=== PATIENT | male | born 2000 | race Caucasian/White ===

== ENCOUNTER 2021-03-08 13:03 | Emergency (ER) | payer OTHER ==
[~2021-03-08] VITALS: Ht 172.7 cm; Wt 68.0 kg
[2021-03-08] MEDS ORDERED: SODIUM CHLORIDE IRR BOTTLE IR ONE (13:24)
[2021-03-08 13:33] VITALS: BP 109/62
--- NOTE | 2021-03-08 13:37 | ER.PDOC ---
General Chief Complaint: Requesting Medical Care Stated Complaint: LEFT FOOT INJURY Time seen by MD: 13:12 Source: patient Exam Limitations: no limitations History of Present Illness Initial Comments 20 year old male presents with puncture wound top left foot. 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 Onset: just prior to arrival Recent Injury: Yes Where: work Severity: mild 1 - puncture Exacerbated By: walking movement Relieved By: rest Prior symptoms/Treatment: No Similar symptoms previous, No Recenly Seen, No Treated by Doctor, No Recently Hospitalized Allergies: Coded Allergies: No Known Allergies (Unverified , 03/08/21) Review of Systems Constitutional: denies no symptoms reported, denies see HPI, denies chills, denies diaphoresis, denies fever, denies malaise, denies weakness, denies other Respiratory: denies no symptoms reported, denies see HPI, denies cough, denies orthopnea, denies shortness of breath, denies stridor, denies wheezing, denies other Cardiovascular: denies no symptoms reported, denies see HPI, denies chest pain, denies edema, denies palpitations, denies syncope, denies other Gastrointestinal: denies no symptoms reported, denies see HPI, denies abdominal pain, denies constipation, denies diarrhea, denies nausea, denies vomiting, denies other Musculoskeletal: denies joint pain, denies joint swelling; muscle pain Skin: denies lesions, denies rash All Other Systems: Reviewed and Negative Physical Exam General Appearance: Alert, No Apparent Distress 1 - L-shaped puncture wound Lower Extremity: no pedal edema, tenderness Joint Exam: joints nml, nml ROM, nml gait/weight bearing Vascular: no vascular compromise, pulses full/equal Neuro/Psych: sensation nml, motor nml, oriented x3, CN's nml as tested, moo d/affect nml Skin: color nml, warm/dry, no rash Back/Neck: nml inspection EENT: eyes inspection nml, ENT inspection nml, pharynx nml Respiratory: no resp distress, breath sounds nml CVS: reg rate & rhythm, heart sounds nml Abdomen: non-tender, no organomegaly, no bruit/mass Results/Orders Results/Orders Orders - AMBER ESPINAL MD Xr Foot Lt (03/08/21 13:29) Diph,Pertuss(Acell),Tet Vac/Pf (Adacel V (03/08/21 14:00) Vital Signs Date Time Temp Pulse Resp B/P (MAP) Pulse Ox O2 Delivery O2 Flow Rate FiO2 03/08/21 13:47 98.1 104 18 129/83 (98) 99 Room Air 03/08/21 13:33 98.1 104 18 99 03/08/21 13:33 98.1 104 18 Progress Progress XR left foot - No acute bony abnormality. ER DEPART Departure Time of Disposition: 14:16 Disposition: 01 HOME / SELF CARE / HOMELESS Impression: Primary Impression: Puncture wound of foot, left Condition: Stable Patient Instructions: Puncture Wound, [id number] Referrals: PCP,UNKNOWN (PCP) PRIMARY CARE PROVIDER Additional Instructions: elevate LLE x 2 days off work x 3 days take Augmentin twice a day to prevent infection wash wound with soap and water twice a day, place Neosporin and dressing to keep clean return to ER or see your PCP for increased pain or signs of infection Duration or Time Spent with Pa: 20 minutes Problem Qualifiers Primary Impression: Puncture wound of foot, left Encounter type: initial encounter Qualified Codes: S91.332A - Puncture wound without foreign body, left foot, initial encounter AMBER ESPINAL MD Mar 08, 2021 13:37
[2021-03-08 13:47] VITALS: BP 129/83
[2021-03-08] MEDS ORDERED: ADACEL VIAL IM ONE (14:00)
--- NOTE | 2021-03-08 14:02 | DIREP ---
PROCEDURE:XRAY FOOT MIN 3 VWS-LT COMPARISON:None. INDICATIONS:puncture FINDINGS: BONES:No acute fracture. JOINTS:Normal. SOFT TISSUES:Dorsal soft tissue wound at the level of the metatarsal heads. No radiopaque foreign body. OTHER:No additional findings. CONCLUSION:No acute bony abnormality. Dictated by: Christa Sanchez MD on 03/08/2021 at 01:59 PM
[2021-03-08 14:47] VITALS: BP 126/54
== END 2021-03-08 14:27 | disposition home or self-care (01) ==
LOC: ER 13:03
DX: S91.332A Puncture wound without foreign body, left foot, initial encounter (principal); W22.8XXA Striking against or struck by other objects, initial encounter; Y93.89 Activity, other specified; Y92.89 Other specified places as the place of occurrence of the external cause; Y99.0 Civilian activity done for income or pay
CPT/HCPCS: 73630; 90471; 90715; 99283; A4217